=== PATIENT | female | born 1995 | race Caucasian/White ===

== ENCOUNTER → 2018-12-26 | Outpatient (CLI) | payer BC ==
[2018-12-26 14:20] LABS: HEPATITIS B SURFACE ANTIGEN NEGATIVE (NEGATIVE); HEPATITIS C VIRUS ABY INDEX 0.1 INDEX (<0.8); HIV 1&2 SCREEN CENTAUR NEGATIVE (NEGATIVE)
== END ==
LOC: M LAB 11:55
PROVIDERS: ATTEND Nurse Practitioner Women's Health
DX: Z11.3 Encounter for screening for infections with a predominantly sexual mode of transmission (principal)